=== PATIENT | female | born 1955 | race Caucasian/White ===

== ENCOUNTER 2017-03-16 17:32 | Emergency (ER) | payer OTHER ==
[~2017-03-16] VITALS: Ht 170.2 cm; Wt 95.3 kg
--- NOTE | 2017-03-16 17:40 | NUR ---
pt ambulatory to er bed 09. c/o lower abdomen and lower back pain w/ rectal pressure x 3 days now. pt denies n/v. aaox3. gowned and placed on monitor. awaiting md dupree.
--- NOTE | 2017-03-16 17:51 | NUR ---
dr mcgraw at bedside for eval.
--- NOTE | 2017-03-16 18:00 | NUR ---
iv line started blood drawn and sent to lab.
[2017-03-16 18:05] LABS: BASOPHILS % (AUTO) 0.6 % (0.0-2.0); EOSINOPHILS # (AUTO) 0.2 /CMM (0.0-0.7); EOSINOPHILS % (AUTO) 2.7 % (0.0-6.0); HEMATOCRIT 38 % (33-45); HEMOGLOBIN 12.9 g/dL (11.5-14.8); LYMPHOCYTES # (AUTO) 1.8 /CMM (0.8-4.8); MEAN CORPUSCULAR HEMOGLOBIN 30 PG (26.0-33.0); MEAN CORPUSCULAR HGB CONC 34 g/dl (31.0-36.0); MEAN CORPUSCULAR VOLUME 87 fL (82-100); MONOCYTES # (AUTO) 0.5 /CMM (0.1-1.30); MONOCYTES % (AUTO) 6.6 % (2.0-12.0); NEUTROPHILS # (AUTO) 4.9 /CMM (1.8-8.9); NEUTROPHILS % (AUTO) 66.1 % (43.0-81.0); PLATELET COUNT (AUTO) 226 /CMM (150-450); RDW COEFFICIENT OF VARIATION 12.8 (11.5-15.0); RED BLOOD CELL COUNT(AUTO) 4.38 MIL/uL (4.0-5.2); WHITE BLOOD COUNT (AUTO) 7.4 K/uL (4.3-11.0)
[2017-03-16] MEDS ORDERED: KETOROLAC TROMETHAMINE INJ 30 MG/ML VIAL ONE (18:11)
[2017-03-16 18:14] LABS: CALCIUM, SERUM 9.8 mg/dL (8.5-10.1); CREATININE 0.8 mg/dL (0.6-1.3); POTASSIUM 4.3 mmol/L (3.5-5.1)
[2017-03-16 18:20] LABS: ALBUMIN 3.6 g/dL (3.4-5.0); BILIRUBIN,TOTAL 0.3 mg/dL (0.2-1.0)
[2017-03-16 18:26] LABS: APPEARANCE,URINE Clear (CLEAR); BILIRUBIN,URINE Negative (NEGATIVE); BLOOD, URINE Negative Ery/uL (NEGATIVE); COLOR,URINE Yellow (YELLOW); KETONES,URINE Negative (NEGATIVE); LEUKOCYTE ESTERASE ,URINE Negative (NEGATIVE); NITRITE, URINE Negative (NEGATIVE); PH,URINE 5.5 (5.0-8.0); PROTEIN,URINE Negative (NEGATIVE); UGLUCOSE Negative (NEGATIVE); UROBILINOGEN,URINE 0.2 EU/dL (0.2)
[2017-03-16] MEDS ORDERED: KETOROLAC TROMETHAMINE INJ 30 MG/ML VIAL IV ONE (18:30)
[2017-03-16] MEDS ORDERED: IOHEXOL-300 100 ML VIAL IV ONE (19:05)
[2017-03-16] MEDS ORDERED: IV NS 0.9% 250 ML IV ONE (19:05)
--- NOTE | 2017-03-16 19:12 | NUR ---
pt to radiology for abdominal/pelvic ct scan via [facility].
[2017-03-16 20:52] VITALS: BP 128/79
--- NOTE | 2017-03-16 20:52 | NUR ---
Patient discharged to home in stable condition. Written and verbal after care instructions given. Patient verbalizes understanding of instruction.IV removed. Catheter intact and site benign. Pressure and 4x4 applied to site. No bleeding noted.
== END 2017-03-16 20:54 | disposition home or self-care (01) ==
LOC: ER 17:33
DX: R10.31 Right lower quadrant pain (principal); F32.9 Major depressive disorder, single episode, unspecified; G43.909 Migraine, unspecified, not intractable, without status migrainosus; Z85.3 Personal history of malignant neoplasm of breast; Z90.49 Acquired absence of other specified parts of digestive tract; Z90.89 Acquired absence of other organs; Z88.6 Allergy status to analgesic agent; Z85.038 Personal history of other malignant neoplasm of large intestine
CPT/HCPCS: 36415; 74160; 80048; 80076; 81001; 83690; 85025; 87086; 96374; 99285; A4606; J1885; J7050; Q9967; Z7610; 81000-TC

== ENCOUNTER 2017-08-07 08:21 | Emergency (ER) | payer OTHER ==
[~2017-08-07] VITALS: Ht 170.2 cm; Wt 99.8 kg
--- NOTE | 2017-08-07 08:21 | NUR ---
BIB SELF C/O DIFFUSE ABDOMINAL PAIN X 3 DAYS SINCE SHE STARTED HER H PYLORII MEDICATION, NAD NOTED, VSS, RESP EVEN AND UNLABORED. WAITING FOR MD ZALDIVAR.
[2017-08-07] MEDS ORDERED: ONDANSETRON HCL/PF 4 MG/2 ML VIAL ONE (08:44)
[2017-08-07] MEDS ORDERED: HYDROMORPHONE 1 MG/1 ML DISP.SYRIN ONE (08:45)
[2017-08-07] MEDS ORDERED: HYDROMORPHONE INJ 2 MG/ML DISP.SYRIN IV ONE (09:00)
[2017-08-07] MEDS ORDERED: ONDANSETRON HCL/PF 4 MG/2 ML VIAL IVP ONE (09:00)
[2017-08-07] MEDS ORDERED: IV NS 0.9% 1,000 ML BAG IV ONE (09:00)
--- NOTE | 2017-08-07 09:05 | NUR ---
URINE SENT TO LAB
[2017-08-07 09:10] LABS: BASOPHILS # (AUTO) 0.1 /CMM (0.0-0.2); BASOPHILS % (AUTO) 0.7 % (0.0-2.0); EOSINOPHILS # (AUTO) 0.2 /CMM (0.0-0.7); EOSINOPHILS % (AUTO) 2.1 % (0.0-6.0); HEMATOCRIT 43 % (33-45); HEMOGLOBIN 14.2 g/dL (11.5-14.8); LYMPHOCYTES # (AUTO) 1.9 /CMM (0.8-4.8); LYMPHOCYTES % (AUTO) 19.4 % (20.0-44.0); MEAN CORPUSCULAR HEMOGLOBIN 28 PG (26.0-33.0); MEAN CORPUSCULAR HGB CONC 33 g/dl (31.0-36.0); MEAN CORPUSCULAR VOLUME 86 fL (82-100); MONOCYTES # (AUTO) 0.7 /CMM (0.1-1.30); MONOCYTES % (AUTO) 7.5 % (2.0-12.0); NEUTROPHILS # (AUTO) 6.7 /CMM (1.8-8.9); NEUTROPHILS % (AUTO) 70.3 % (43.0-81.0); PLATELET COUNT (AUTO) 227 /CMM (150-450); RED BLOOD CELL COUNT(AUTO) 5.03 MIL/uL (4.0-5.2); WHITE BLOOD COUNT (AUTO) 9.6 K/uL (4.3-11.0)
[2017-08-07 09:13] LABS: APPEARANCE,URINE Clear (CLEAR); BILIRUBIN,URINE Negative (NEGATIVE); BLOOD, URINE Negative Ery/uL (NEGATIVE); COLOR,URINE Yellow (YELLOW); KETONES,URINE Negative (NEGATIVE); LEUKOCYTE ESTERASE ,URINE Negative (NEGATIVE); NITRITE, URINE Negative (NEGATIVE); PROTEIN,URINE Negative (NEGATIVE); UGLUCOSE Negative (NEGATIVE); UROBILINOGEN,URINE 0.2 EU/dL (0.2)
[2017-08-07 09:18] LABS: CALCIUM, SERUM 9.7 mg/dL (8.5-10.1); CREATININE 0.9 mg/dL (0.6-1.3); POTASSIUM 3.9 mmol/L (3.5-5.1)
[2017-08-07 09:23] LABS: ALBUMIN 3.7 g/dL (3.4-5.0); BILIRUBIN,DIRECT 0.1 mg/dL (0.0-0.2); BILIRUBIN,TOTAL 0.4 mg/dL (0.2-1.0); TOTAL PROTEIN, SERUM 7.1 g/dL (6.4-8.2)
[2017-08-07 10:16] LABS: LYMPHOCYTES % (MANUAL) 14 % (16-48); MONOCYTES % (MANUAL) 7 % (0-11.0); NEUTROPHILS % (MANUAL) 79 (42-76)
[2017-08-07] MEDS ORDERED: KETOROLAC TROMETHAMINE INJ 30 MG/ML VIAL ONE (10:49)
[2017-08-07 10:50] VITALS: BP 123/72
[2017-08-07] MEDS ORDERED: KETOROLAC TROMETHAMINE INJ 30 MG/ML VIAL IV ONE (11:00)
== END 2017-08-07 08:58 | disposition home or self-care (01) ==
LOC: ER 08:22
DX: K59.00 Constipation, unspecified (principal); K52.9 Noninfective gastroenteritis and colitis, unspecified; F32.9 Major depressive disorder, single episode, unspecified; K76.0 Fatty (change of) liver, not elsewhere classified; G43.909 Migraine, unspecified, not intractable, without status migrainosus; N28.1 Cyst of kidney, acquired; Z85.038 Personal history of other malignant neoplasm of large intestine; Z85.3 Personal history of malignant neoplasm of breast; Z90.49 Acquired absence of other specified parts of digestive tract; Z90.710 Acquired absence of both cervix and uterus; Z88.6 Allergy status to analgesic agent
CPT/HCPCS: 36415; 80048-TC; 80076-TC; 81000-TC; 83690-TC; 85025-TC; A4606; J1170; J1885; J2405; J7030; Z7610

== ENCOUNTER 2018-11-07 09:23 | Emergency (ER) | payer OTHER ==
[~2018-11-07] VITALS: Ht 170.2 cm; Wt 98.0 kg
--- NOTE | 2018-11-07 09:50 | NUR ---
AAOX3, CAME TO ER C/O "Cough/Sore throat/Pain with cough-chest x5days/low frade fever 99". RR IS EVEN AND SLIGHTLY LABORED. SKIN IS WARM AND DRY. AWAITING MD FOR EVAL.
[2018-11-07] MEDS ORDERED: ALBUTEROL FS 2.5 MG/3 ML VIAL.NEB ONE (10:10)
[2018-11-07] MEDS ORDERED: IPRATROPIUM NEB FS 0.5 MG/2.5 ML AMPUL.NEB ONE (10:10)
[2018-11-07] MEDS ORDERED: ALBUTEROL FS 2.5 MG/3 ML VIAL.NEB NEB ONE (10:30)
[2018-11-07] MEDS ORDERED: predniSONE 20 MG TABLET PO ONE (10:30)
[2018-11-07] MEDS ORDERED: IPRATROPIUM NEB FS 0.5 MG/2.5 ML AMPUL.NEB NEB ONE (10:30)
[2018-11-07] MEDS ORDERED: predniSONE 20 MG TABLET ONE (10:39)
[2018-11-07 11:34] VITALS: BP 130/80
--- NOTE | 2018-11-07 11:35 | NUR ---
Patient discharged to home in stable condition. Written and verbal after care instructions given. Patient verbalizes understanding of instruction.
== END 2018-11-07 11:36 | disposition home or self-care (01) ==
LOC: ER 09:41
DX: J45.909 Unspecified asthma, uncomplicated (principal); G43.909 Migraine, unspecified, not intractable, without status migrainosus; F32.9 Major depressive disorder, single episode, unspecified; Z85.3 Personal history of malignant neoplasm of breast; Z85.038 Personal history of other malignant neoplasm of large intestine; Z90.710 Acquired absence of both cervix and uterus; Z90.89 Acquired absence of other organs; Z88.5 Allergy status to narcotic agent; Z60.2 Problems related to living alone
CPT/HCPCS: 94640 ×2; 99284; A4606; J7512; Z7610

== ENCOUNTER 2019-01-19 08:38 | Emergency (ER) | payer OTHER ==
[~2019-01-19] VITALS: Ht 170.2 cm; Wt 97.1 kg
--- NOTE | 2019-01-19 08:55 | NUR ---
aaox3, came to er c/o "woke up around 3am with head ache, nausea/vomiting. BP high 170 took meds". RR is even and unlabored with NAD noted. Skin is warm and dry. Awaiting md for eval.
[2019-01-19] MEDS ORDERED: ACETAMINOPHEN ES 500 MG TABLET ONE (09:20)
[2019-01-19] MEDS ORDERED: METOCLOPRAMIDE HCL 10 MG/2 ML VIAL ONE (09:20)
[2019-01-19 09:25] LABS: BASOPHILS # (AUTO) 0.1 /CMM (0.0-0.2); BASOPHILS % (AUTO) 0.7 % (0.0-2.0); EOSINOPHILS % (AUTO) 0.2 % (0.0-6.0); HEMATOCRIT 44 % (33-45); HEMOGLOBIN 14.6 g/dL (11.5-14.8); LYMPHOCYTES # (AUTO) 1.5 /CMM (0.8-4.8); LYMPHOCYTES % (AUTO) 15.6 % (20.0-44.0); MEAN CORPUSCULAR HGB CONC 34 g/dl (31.0-36.0); MEAN CORPUSCULAR VOLUME 89 fL (82-100); MONOCYTES # (AUTO) 0.4 /CMM (0.1-1.30); MONOCYTES % (AUTO) 4.6 % (2.0-12.0); NEUTROPHILS # (AUTO) 7.6 /CMM (1.8-8.9); NEUTROPHILS % (AUTO) 78.9 % (43.0-81.0); PLATELET COUNT (AUTO) 218 /CMM (150-450); RED BLOOD CELL COUNT(AUTO) 4.88 MIL/uL (4.0-5.2); WHITE BLOOD COUNT (AUTO) 9.6 K/uL (4.3-11.0)
[2019-01-19] MEDS ORDERED: METOCLOPRAMIDE HCL 10 MG/2 ML VIAL IV ONE (09:30)
[2019-01-19] MEDS ORDERED: ACETAMINOPHEN ES 500 MG TABLET PO ONE (09:30)
[2019-01-19 09:34] LABS: CALCIUM, SERUM 9.5 mg/dL (8.5-10.1); CARBON DIOXIDE 25 mmol/L (21-32); CHLORIDE 105 mmol/L (98-107); CREATININE 0.8 mg/dL (0.6-1.3); GLUCOSE 128 mg/dL (74-106); POTASSIUM 4.1 mmol/L (3.5-5.1); SODIUM SERUM 139 mmol/L (136-145); UREA NITROGEN, BLOOD 17 mg/dL (7-18)
--- NOTE | 2019-01-19 09:37 | NUR ---
Patient transported for CT head.
[2019-01-19 09:40] LABS: ALANINE AMINOTRANSFERASE 32 U/L (12-78); ALKALINE PHOSPHATASE 64 U/L (46-116); ASPARTATE AMINOTRANSFERASE 17 U/L (15-37); BILIRUBIN,TOTAL 0.3 mg/dL (0.2-1.0); TOTAL PROTEIN, SERUM 7.4 g/dL (6.4-8.2)
[2019-01-19 09:54] LABS: BILIRUBIN,DIRECT 0.1 mg/dL (0.0-0.2)
--- NOTE | 2019-01-19 10:46 | NUR ---
IV removed. Catheter intact and site benign. Pressure and 4x4 applied to site. No bleeding noted.Patient discharged to home in stable condition. Written and verbal after care instructions given. Patient verbalizes understanding of instruction.
[2019-01-19 10:47] VITALS: BP 109/63
== END 2019-01-19 10:48 | disposition home or self-care (01) ==
LOC: ER 08:44
DX: R00.2 Palpitations (principal); G43.909 Migraine, unspecified, not intractable, without status migrainosus; F32.9 Major depressive disorder, single episode, unspecified; Z88.6 Allergy status to analgesic agent; Z90.710 Acquired absence of both cervix and uterus; Z90.89 Acquired absence of other organs; Z98.890 Other specified postprocedural states; Z85.3 Personal history of malignant neoplasm of breast; Z85.038 Personal history of other malignant neoplasm of large intestine
CPT/HCPCS: 36415; 70450; 80048; 80076; 84484; 85025; 93005; 96374; 99284; A4216; J2765

== ENCOUNTER 2021-12-27 19:41 | Emergency (ER) | payer MEDICARE, OTHER ==
[~2021-12-27] VITALS: Ht 167.6 cm; Wt 97.5 kg
--- NOTE | 2021-12-27 20:05 | NUR ---
PRESENTED TO THE ER FOR C/O R CALF PAIN. AMBULATORY TO BED 3 ER. VSS
--- NOTE | 2021-12-27 20:23 | NUR ---
XRAY AT BEDSIDE
--- NOTE | 2021-12-27 20:37 | NUR ---
US at bedside
[2021-12-27] MEDS ORDERED: IBUP-1957 PO (21:37)
[2021-12-27] MEDS ORDERED: HYDR-4209 PO (21:44)
--- NOTE | 2021-12-27 21:44 | NUR ---
Patient discharged to home in stable condition. Written and verbal after care instructions given. Patient verbalizes understanding of instruction.
[2021-12-27 21:46] VITALS: BP 145/89
== END 2021-12-27 21:45 | disposition home or self-care (01) ==
LOC: ER 19:44
DX: M25.571 Pain in right ankle and joints of right foot (principal); M79.661 Pain in right lower leg; G43.909 Migraine, unspecified, not intractable, without status migrainosus; F32.A Depression, unspecified; Z85.3 Personal history of malignant neoplasm of breast; Z90.89 Acquired absence of other organs; Z90.710 Acquired absence of both cervix and uterus; Z90.10 Acquired absence of unspecified breast and nipple; Z90.49 Acquired absence of other specified parts of digestive tract; Z88.5 Allergy status to narcotic agent; Z79.891 Long term (current) use of opiate analgesic; Z79.1 Long term (current) use of non-steroidal anti-inflammatories (NSAID)
CPT/HCPCS: 73590-TC; 73610-TC; 73630-TC; 93971-TC

== ENCOUNTER 2022-01-23 20:29 | Emergency (ER) | payer MEDICARE, OTHER ==
[~2022-01-23] VITALS: Ht 162.6 cm; Wt 79.4 kg
[~2022-01-23 20:29] MED LIST: HYDR-4209 PO; IBUP-1957 PO
--- NOTE | 2022-01-23 21:30 | NUR ---
Jose iverson in [facility] - 01/23/22 at 2151 by [email or web address] A CALLED TO TRIAGE. NO RESPONSE.
--- NOTE | 2022-01-23 21:35 | NUR ---
Note zayra in [facility] - 01/23/22 at 2224 by LOLITA PT BIBRA [id number] C/O H/A & R HIP PAIN S/P TRIP & GLF. PT HIT HEAD ON FLOOR. - -KO, + NAUSEA. PT A/OX4. TOLERATING R/A WELL. PT AMBULATORY WITH ASSISTANCE
--- NOTE | 2022-01-23 21:35 | NUR ---
PT BIBHUSBAND C/O COCCYX PAIN S/P GLF. SITTING ON CHAIR & CHAIR BROKE, FELL ON COCCYX. -KO, + NAUSEA. PT A/OX4. TOLERATING R/A WELL WITH NO SOB. PT AMBULATORY WITH ASSISTANCE.
--- NOTE | 2022-01-23 21:40 | NUR ---
PT BIBHUSBAND C/O COCCYX PAIN S/P GLF. SITTING ON CHAIR & CHAIR BROKE, FELL ON COCCYX. PT AWAKE AND ALERT -KO -NEURO DEFECITS. PT AMBULATORY WITH ASSISTANCE. ALL V/S WNL.
[2022-01-23] MEDS ORDERED: HYDROCODONE/APAP 5/325MG TABLET ONE (22:44)
[2022-01-23] MEDS ORDERED: HYDROCODONE/APAP 5/325MG TABLET PO ONE (23:00)
--- NOTE | 2022-01-23 23:06 | NUR ---
PT TAKEN TO CT VIA JEAN MARIE
--- NOTE | 2022-01-23 23:17 | NUR ---
PT RETURNED TO ER BED 2
--- NOTE | 2022-01-24 00:17 | NUR ---
Patient discharged to home in stable condition. Written and verbal after care instructions given. Patient verbalizes understanding of instruction.
[2022-01-24 00:22] VITALS: BP 158/74
== END 2022-01-24 00:22 | disposition home or self-care (01) ==
LOC: ER 20:32
DX: M53.3 Sacrococcygeal disorders, not elsewhere classified (principal); G43.909 Migraine, unspecified, not intractable, without status migrainosus; F32.A Depression, unspecified; Z98.890 Other specified postprocedural states; Z88.6 Allergy status to analgesic agent; W18.39XA Other fall on same level, initial encounter; Y93.89 Activity, other specified; Y92.89 Other specified places as the place of occurrence of the external cause; Y99.8 Other external cause status